=== PATIENT | male | born 1945 | race Caucasian/White ===

== ENCOUNTER 2020-08-19 15:04 | Inpatient (IN) | payer SELFPAY ==
[~2020-08-19] VITALS: Ht 170.2 cm; Wt 51.5 kg
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
[2020-08-19] MEDS ORDERED: IV NS 0.9% 1,000 ML BAG IV ONE (18:00)
[2020-08-19] MEDS ORDERED: LORAZEPAM INJ 2 MG/ML VIAL IV ONE (18:00)
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
[2020-08-19 18:39] LABS: BASOPHILS # (AUTO) 0.1 /CMM (0.0-0.2); BASOPHILS % (AUTO) 1.1 % (0.0-2.0); EOSINOPHILS % (AUTO) 3.7 % (0.0-6.0); HEMATOCRIT 35 % (39-51); HEMOGLOBIN 11.2 g/dL (13.5-17.5); LYMPHOCYTES # (AUTO) 1.8 /CMM (0.8-4.8); LYMPHOCYTES % (AUTO) 17.8 % (20.0-44.0); MEAN CORPUSCULAR HGB CONC 32 g/dl (31.0-36.0); MEAN CORPUSCULAR VOLUME 87 fL (80-96); MONOCYTES # (AUTO) 0.6 /CMM (0.1-1.30); MONOCYTES % (AUTO) 5.9 % (2.0-12.0); NEUTROPHILS # (AUTO) 7.1 /CMM (1.8-8.9); NEUTROPHILS % (AUTO) 71.5 % (43.0-81.0); PLATELET COUNT (AUTO) 247 /CMM (150-450); RED BLOOD CELL COUNT(AUTO) 4.04 MIL/uL (4.5-6.0); WHITE BLOOD COUNT (AUTO) 9.9 K/uL (4.3-11.0)
[2020-08-19 18:50] LABS: CALCIUM, SERUM 9.1 mg/dL (8.5-10.1); CREATININE 1.2 mg/dL (0.6-1.3)
[2020-08-19 18:56] LABS: ALBUMIN 2.8 g/dL (3.4-5.0); BILIRUBIN,DIRECT 0.1 mg/dL (0.0-0.2); BILIRUBIN,TOTAL 0.2 mg/dL (0.2-1.0); TOTAL PROTEIN, SERUM 8.2 g/dL (6.4-8.2)
[2020-08-19 19:43] LABS: THYROID STIMULATING HORMONE 1.158 uIU/mL (0.358-3.74)
--- NOTE | 2020-08-19 20:44 | NUR ---
covid negative per lab
--- NOTE | 2020-08-19 21:48 | NUR ---
REPORT GIVEN TO MICKEY SANCHES FOR VALDEMAR
[2020-08-19 22:00] VITALS: BP 150/77
--- NOTE | 2020-08-19 22:11 | NUR ---
pt transported to [facility] with emt and rn at bedside woth acls protocol. nad noted during transport
--- NOTE | 2020-08-19 22:55 | NUR ---
tele pigs feet finisher initial notes admit a pt from ER via ariela accompanied by ER nurse and tech. GARSIA of Altered level of status. Per ER report pt brought in by Proposal Rep Patient found on the street with multiple bottles of vodka altered but no signs of any distress noted. He also Eloped from [facility] jus found out from the wristband that he's wearing. patient still resting at this time with eyes closed but arouse easily , answered some of my question and do some assessment to him then he states "leave me alone wants to sleep now. ". kept him warm and comfortable at all times. will continue monitoring. ,
[2020-08-19] MEDS ORDERED: ZOLPIDEM TARTRATE 5 MG TABLET PO PRN (23:00)
[2020-08-19] MEDS ORDERED: IV LR 1000 ML 1,000 ML IV PRN (23:00)
[2020-08-19] MEDS ORDERED: ONDANSETRON HCL/PF 4 MG/2 ML VIAL IVP PRN (23:00)
[2020-08-19] MEDS ORDERED: Z GUARD REMEDY 2 OZ OINT TP PRN (23:00)
[2020-08-19] MEDS ORDERED: ACETAMINOPHEN 325 MG TABLET PO PRN (23:00)
[2020-08-19 23:01] VITALS: BP 150/77
--- NOTE | 2020-08-20 00:32 | NUR ---
tele academic manager notes pt remains sleeping started IVF LR at 100ml./hr as ordered. Patient still refusing to have a tele monitor even i explained to him the purpose of it . he states "leave me alone".
[2020-08-20] MEDS: LORAZEPAM INJ 2 MG/ML VIAL IV PRN ×2 (00:46→04:49)
--- NOTE | 2020-08-20 00:46 | NUR ---
livestock auctioneer notes patient woke up and started screaming , agitated trying to get up and saying bad words then asking for his methadone 70 mg. I asked why he needs methadone he told me because he's a heroin user made him calm. . I told him that no order of methadone. then he started saying bad words again to the staff and get agitated. Ativan given by another ok IVP as ordered then patient saying cover me with blanket . still refusing the tele monitor.
--- NOTE | 2020-08-20 04:49 | NUR ---
MANAGER TRANSPLANT NOTES AWAKE,RESTLESS,HAVING ETOH WITHDRAWAL,ATIVAN 2MG IV GIVEN ORDERED.FALL PRECAUTION OBSERVED.BED ON LOWEST POSITION AND LOCKED,BED ALARM TRIGGERED.VISUAL CHECK PROTOCOL INITIATED.
--- NOTE | 2020-08-20 04:49 | NUR ---
tele industrial services worker notes pts agitated refused to have blood draw. still refused to put the tele monitor.
[2020-08-20 06:32] LABS: BASOPHILS % (AUTO) 0.3 % (0.0-2.0); EOSINOPHILS % (AUTO) 0.6 % (0.0-6.0); HEMATOCRIT 37 % (39-51); HEMOGLOBIN 11.6 g/dL (13.5-17.5); LYMPHOCYTES # (AUTO) 0.9 /CMM (0.8-4.8); LYMPHOCYTES % (AUTO) 11.1 % (20.0-44.0); MEAN CORPUSCULAR HGB CONC 32 g/dl (31.0-36.0); MEAN CORPUSCULAR VOLUME 86 fL (80-96); MONOCYTES # (AUTO) 0.4 /CMM (0.1-1.30); NEUTROPHILS # (AUTO) 6.4 /CMM (1.8-8.9); PLATELET COUNT (AUTO) 274 /CMM (150-450); RED BLOOD CELL COUNT(AUTO) 4.25 MIL/uL (4.5-6.0); WHITE BLOOD COUNT (AUTO) 7.7 K/uL (4.3-11.0)
[2020-08-20 06:49] LABS: ALBUMIN 2.6 g/dL (3.4-5.0); BILIRUBIN,TOTAL 0.5 mg/dL (0.2-1.0); CALCIUM, SERUM 8.5 mg/dL (8.5-10.1); PHOSPHORUS 3.8 mg/dL (2.5-4.9); POTASSIUM 4.5 mmol/L (3.5-5.1); TOTAL PROTEIN, SERUM 7.8 g/dL (6.4-8.2)
--- NOTE | 2020-08-20 07:07 | NUR ---
MS CAFE ATTENDANT CLOSING NOTES PT REMAINS SLEEPING AFTER ATIVAN GIVEN . BREATHING EVEN AND NON-LABORED NOT IN ANY ACUTE DISTRESS NOTED. IVF LR AT 100ML.HR INFUSING AT THIS TIME. REFUSED TO HAVE THE TELE BOX APPLIED TO HIS CHEST WALL EVEN I EXPLAINED TO HIM WHY HE NEEDS IT. PT WHEN HE 'S AWAKE HE'S AGITATED WANTS HE'S METHADONE RIGHT AWAY . REFUSED MORNING CARE WELL AND STATED "LEAVE ME ALONE". BED IN LOW AND LOCK IN POSITION WITH SIDE RAILS X2 UP AND BED ALARM SET FOR SAFETY. WILL ENDORSE TO AM NURSE FOR CONTINUITY OF CARE.
[2020-08-20 07:25] LABS: THYROID STIMULATING HORMONE 0.623 uIU/mL (0.358-3.74)
--- NOTE | 2020-08-20 07:30 | NUR ---
QUALITY CONTROL TECHNICIAN NOTES PT IN BED, ASLEEP, RESPIRATIONS NORMAL, NO SIGN OF PAIN OR DISTRESS, EASY TO AROUSE, CALL LIGHT WITHIN REACH, IV FLUIDS INFUSING WELL, KEPT SURVEILLANCE OPERATOR BED.
[2020-08-20 08:03] VITALS: BP 165/78
[2020-08-20] MEDS ORDERED: PANTOPRAZOLE 40 MG VIAL IV SCH (09:00)
--- NOTE | 2020-08-20 09:30 | NUR ---
Wearing Apparel Folder: administrative services manager consult requested for alcohol abuse. SW spoke to patient's RN Amy who stated patient is sleeping and asked this SW to meet with patient for consult later in the day. SW will follow-up at a later time.
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
[2020-08-20] MEDS ORDERED: ENSURE ENLIVE 237 ML LIQUID (VANILLA) PO SCH (17:00)
== END 2020-08-20 13:30 | disposition left against medical advice (07) | DRG 894 ==
LOC: ER 15:09 → TELE 21:47 → MED 08-20 08:45
PROVIDERS: ADMIT Nurse Practitioner Acute Care; ATTEND Registered Nurse
DX: F10.239 Alcohol dependence with withdrawal, unspecified (principal); G93.41 Metabolic encephalopathy; F10.229 Alcohol dependence with intoxication, unspecified; F17.200 Nicotine dependence, unspecified, uncomplicated; D64.9 Anemia, unspecified; Z20.822 Contact with and (suspected) exposure to COVID-19; Y90.6 Blood alcohol level of 120-199 mg/100 ml; Z86.73 Personal history of transient ischemic attack (TIA), and cerebral infarction without residual deficits; K44.9 Diaphragmatic hernia without obstruction or gangrene; I67.2 Cerebral atherosclerosis
CPT/HCPCS: 36415; 70450-TC; 71045-TC; 80048-TC; 80053-TC; 80061-TC; 80076-TC; 83540-TC; 83735-TC; 84100-TC; 84443-TC; 84484-TC; 85025-TC; 87081-TC; C9113; C9803; G0378; G0480; J2060; J7030; J7120

== ENCOUNTER 2022-10-11 17:19 | Emergency (ER) | payer MEDICARE, OTHER ==
[~2022-10-11] VITALS: Ht 165.1 cm; Wt 66.2 kg
[2022-10-11 18:19] VITALS: BP 129/74
--- NOTE | 2022-10-11 18:19 | NUR ---
Patient given written and verbal discharge instructions. Patient verbalizes understanding of instructions. Patient is ambulatory with steady gait. Refuses offer of long-term placement. Patient given list of available shelters in surrounding area.
== END 2022-10-11 18:19 | disposition home or self-care (01) ==
LOC: ER 17:25
DX: F10.129 Alcohol abuse with intoxication, unspecified (principal); I10 Essential (primary) hypertension; Y90.9 Presence of alcohol in blood, level not specified
CPT/HCPCS: 82962-TC